=== PATIENT | female | born 1980 | race Hispanic/Latino ===

== ENCOUNTER 2021-06-23 16:51 | Observation (INO) | payer SELFPAY ==
[2021-06-23 18:14] LABS: #Basophils 0.1 thou/uL (0.0-0.2); #Eosinphils 0.1 thou/uL (0.0-0.7); #Lymphocytes 1.9 thou/uL (1.20-3.40); #Monocytes 0.5 thou/uL (0.11-0.59); #Neutrophils 6.5 thou/uL (1.40-6.50); %Basophils 0.7 % (0.0-1.0); %Eosinophils 0.8 % (0.0-10.0); %Lymphocytes 21.4 % (21.0-51.0); %Monocytes 5.2 % (0.0-10.0); Hemoglobin 9.8 g/dL (12.0-16.0); Mean Corpuscular HGB CONC 31.7 g/dL (32.0-36.0); Mean Corpuscular Hemoglobin 24.1 pg (27.0-31.0); Mean Corpuscular Volume 76.1 fL (78.0-98.0); Mean Platelet Volume 7.3 fL (7.4-10.4); Platelet Count 298 thou/uL (130-400); RBC Distribution Width 15.6 % (11.5-14.5); Red Blood Cell (RBC) Count 4.05 mill/uL (4.20-5.40); White Blood Cell (WBC) Count 9.1 thou/uL (4.8-10.8)
[2021-06-23 19:04] LABS: Albumin 4.5 g/dL (3.5-5.0)
[2021-06-23 19:05] LABS: Chloride 110 mmol/L (98-107); Sodium 140 mmol/L (136-145)
[2021-06-23 19:06] LABS: Calcium 9.1 mg/dL (7.8-10.44)
[2021-06-23 19:07] LABS: Glucose 127 mg/dL (70-105); Protein, Total 7.5 g/dL (6.0-8.3)
[2021-06-23 19:08] LABS: Bilirubin, Total 0.4 mg/dL (0.2-1.2)
[2021-06-23 19:09] LABS: Alkaline Phosphatase 77 U/L (40-110)
[2021-06-23 19:10] LABS: Calc. Creatinine Clearance 0 mL/min (70-130)
[2021-06-23 19:11] LABS: BUN (Urea Nitrogen) 10 mg/dL (7.0-18.7)
[2021-06-23 19:12] LABS: ALT (SGPT) 18 U/L (8-55); AST (SGOT) 29 U/L (5-34)
[2021-06-23 19:13] LABS: Lipase 28 U/L (8-78)
[2021-06-23 19:19] LABS: Carbon Dioxide Less than 8 mmol/L (22-29)
[2021-06-23 20:51] LABS: Actual Bicarbonate (HCO3a) 23.3 mEq/L (22-28); Base Excess (BEa) -0.6 mEq/L (-2.0 to +3.0); CO2 Tension 35.5 mmHg (35.0-45.0); Calcium, Ionized (arterial) 1.17 mmol/L (1.12-1.30); Carboxyhemoglobin (COHb) 0.1 gm% (0.0-3.0); Hemoglobin (Hb) 10.2 g/dL (12.0-16.0); O2 Tension (PaO2), arterial 84.4 mmHg (80.0-100.0); Potassium - ABG Lab 3.41 mmol/L (3.70-5.30); pH, Arterial 7.44 (7.35-7.45)
[2021-06-23 20:54] LABS: ALV-art Gradient 20.955 mmHg (0-20); Puncture Site LRA
[2021-06-23 21:09] LABS: Lactic Acid 0.9 mmol/L (0.5-2.2)
[2021-06-23 21:11] LABS: Troponin I Less than 0.010 ng/mL (< 0.028)
[2021-06-23] MEDS ORDERED: Dextrose 50% Abboject 50 ML SYRINGE SLOW IVP PRN (21:28)
[2021-06-23] MEDS ORDERED: Dextrose 5% in Water 1,000 ML IV PRN (21:28)
[2021-06-23] MEDS ORDERED: Acetaminophen 650 MG Suppository PR PRN (21:28)
[2021-06-23] MEDS ORDERED: Ondansetron PF 4 MG/2 ML Vial IVP PRN (21:28)
[2021-06-23] MEDS ORDERED: Acetaminophen 325 MG TAB PO PRN (21:28)
[2021-06-23] MEDS ORDERED: HumaLOG 300 UNITS/3 ML VIAL SC PRN ×2 (21:28)
[2021-06-23] MEDS ORDERED: Ondansetron ODT 4 MG TAB PO PRN (21:28)
[2021-06-23] MEDS ORDERED: Nitroglycerin 0.4 MG TAB (25 Tab Bottle) SL PRN (21:30)
[2021-06-23 22:05] VITALS: BMI 27.3
[2021-06-23 22:26] LABS: Iron 16 ug/dL (50-170); Iron Binding Capacity, Total 405 mcg/dL (265-497)
[2021-06-23] MEDS: Sodium Chloride 0.9% 1,000 ML IV SCH (22:45)
[2021-06-24] MEDS ORDERED: Iron, Sodium Ferric Gluconate 250 MG in Sodium Chloride 0.9% 250 ML 250 ML IVPB SCH (01:00)
[2021-06-24 01:56] LABS: Troponin I Less than 0.010 ng/mL (< 0.028)
[2021-06-24 05:11] LABS: #Eosinphils 0.1 thou/uL (0.0-0.7); #Lymphocytes 3.1 thou/uL (1.20-3.40); #Monocytes 0.5 thou/uL (0.11-0.59); #Neutrophils 3.8 thou/uL (1.40-6.50); %Basophils 0.3 % (0.0-1.0); %Eosinophils 1.6 % (0.0-10.0); %Lymphocytes 40.8 % (21.0-51.0); %Monocytes 7.1 % (0.0-10.0); %Neutrophils 50.1 % (42.0-75.0); Hemoglobin 9.4 g/dL (12.0-16.0); Mean Corpuscular HGB CONC 31.7 g/dL (32.0-36.0); Mean Corpuscular Hemoglobin 23.9 pg (27.0-31.0); Mean Corpuscular Volume 75.5 fL (78.0-98.0); Mean Platelet Volume 7.2 fL (7.4-10.4); Platelet Count 307 thou/uL (130-400); RBC Distribution Width 15.9 % (11.5-14.5); Red Blood Cell (RBC) Count 3.91 mill/uL (4.20-5.40); White Blood Cell (WBC) Count 7.6 thou/uL (4.8-10.8)
[2021-06-24 05:32] LABS: Anion Gap 14 mmol/L (10-20); BUN (Urea Nitrogen) 10 mg/dL (7.0-18.7); Calc. Creatinine Clearance 139 mL/min (70-130); Calcium 9.1 mg/dL (7.8-10.44); Carbon Dioxide 20 mmol/L (22-29); Chloride 108 mmol/L (98-107); Glucose 117 mg/dL (70-105); Potassium 3.7 mmol/L (3.5-5.1); Sodium 138 mmol/L (136-145)
[2021-06-24] MEDS ORDERED: ADENOSINE 60 MG/20 ML VIAL ONE (08:46)
[2021-06-24] MEDS ORDERED: Aspirin Chewable 81 MG TAB PO SCH (09:00)
[2021-06-24] MEDS ORDERED: Enoxaparin Sodium 40 MG/0.4 ML SYRINGE SC SCH (09:00)
[2021-06-24] MEDS ORDERED: Iopamidol 370 76% 100 ML VIAL ONE (09:15)
[2021-06-24] MEDS: Sodium Chloride 0.9% 1,000 ML IV SCH (09:44)
[2021-06-24 10:45] LABS: SARS-CoV-2 PCR by NAA Not Detected (NotDetected)
[2021-06-24 16:41] VITALS: BP 136/71; TEMP 98
[2021-06-25] MEDS ORDERED: Ferrous Sulfate 325 MG TAB PO SCH (08:00)
== END 2021-06-24 17:01 | disposition home or self-care (01) ==
LOC: ERS 16:51 → 2SW 19:56
PROVIDERS: ADMIT Student in an Organized Health Care Education/Training Program; ATTEND Internal Medicine
DX: R07.89 Other chest pain (principal); D50.9 Iron deficiency anemia, unspecified; E11.9 Type 2 diabetes mellitus without complications; I10 Essential (primary) hypertension; E78.5 Hyperlipidemia, unspecified; R19.01 Right upper quadrant abdominal swelling, mass and lump; Z79.2 Long term (current) use of antibiotics; Z79.82 Long term (current) use of aspirin; Z79.84 Long term (current) use of oral hypoglycemic drugs; Z79.899 Other long term (current) drug therapy; Z88.8 Allergy status to other drugs, medicaments and biological substances; Z20.822 Contact with and (suspected) exposure to COVID-19
CPT/HCPCS: 36415; 36416; 36600; 71045; 74177; 78452; 80048; 80053; 82728; 82805; 83540; 83550; 83605; 83690; 83880; 84484; 85025; 85379; 93005; 93017; 96365; 96366; A9500; G0378; J0153; J2916; J7050; Q9967; U0003; U0005